=== PATIENT | female | born 1950 | race Hispanic/Latino ===

== ENCOUNTER 2021-03-22 14:49 | Outpatient (CLI) | payer MEDICARE, OTHER | END 2021-03-22 14:50 | disposition home or self-care (01) | LOC: SPVWC 14:49 | PROVIDERS: ATTEND Surgery | DX: Z12.31 Encounter for screening mammogram for malignant neoplasm of breast (principal); N64.89 Other specified disorders of breast | CPT/HCPCS: 77067 ==